=== PATIENT | female | born 1950 | race Caucasian/White ===

== ENCOUNTER 2019-07-27 11:33 | Emergency (ER) | payer OTHER ==
[2019-07-27 12:18] VITALS: BMI 33.3
--- NOTE | 2019-07-27 12:25 | PDOC ---
History of Present Illness - General Chief Complaint: Injury Stated Complaint: HEAD INJURY Time Seen by Provider: 07/27/19 12:22 - History of Present Illness Initial Comments: 07/27/19 12:41 Ms. Maldonado is a 68 year old woman with a pmhx of polycythemia vera and 3 strokes (last in 1997, only deficit is the pt is non-verbal but able to answer yes no and follow commands, neuro exam is otherwise normal) who presents to the emergency department from [facility] s/p unwitnessed fall. Per the family, the patient was in her room at [facility] and they believe her door was not closed all the way, she was walking towards it and tripped over her feet, hitting the L side of her face into the door frame. There is conflicting reports about whether the pt actually fell too the ground or not, however the pt denies falling to the ground. Stating "No" when asked if she fell on her hands, hip, knees, or buttocks. She also denied hitting any other part of her body aside from the L side of her face. Past History - Travel Traveled outside of the country in the last 30 days: No Close contact w/someone who was outside of country & ill: No - Past Medical History Allergies/Adverse Reactions: Allergies Allergy/AdvReac Type Severity Reaction Status Date / Time Penicillins Allergy Verified 07/27/19 12:03 Home Medications: Ambulatory Orders Aspirin/Dipyridamole [Aggrenox -] 1 combo PO BID 01/22/15 Calcium Carb/Magnesium Hydrox [Antacid Chewable Tablet] 1 each PO BID 01/22/15 Cholecalciferol (Vitamin D3) [Vitamin D-3] 2,000 unit PO DAILY 01/22/15 Levothyroxine [Synthroid -] 37.5 mcg PO DAILY 07/27/19 CVA: Yes COPD: No HTN: Yes - Immunization History Immunization Up to Date: Yes - Psycho Social/Smoking Cessation Hx Smoking History: Unknown if ever smoked Have you smoked in the past 12 months: No Information on smoking cessation initiated: No Hx Alcohol Use: No Drug/Substance Use Hx: No Substance Use Type: None Hx Substance Use Treatment: No Review of Systems - Review of Systems Able to Perform ROS?: Yes Is the patient limited Andorran proficient: No Constitutional: No: Chills, Fever, Loss of Appetite HEENTM: Yes: Eye Pain Respiratory: No: Shortness of Breath Cardiac (ROS): No: Chest Pain, Irregular Heart Rate, Lightheadedness, Palpitations, Syncope ABD/GI: No: Abdominal Distended, Blood Streaked Bowels, Rectal Bleeding : No: Burning, Dysuria, Flank Pain, Hematuria Integumentary: No: Change in Color, Dryness, Erythema, Rash Neurological: No: Headache, Numbness, Paresthesia, Tingling All Other Systems: Reviewed and Negative *Physical Exam - Vital Signs Last Vital Signs Temp Pulse Resp BP Pulse Ox 97.9 F 91 H 17 148/83 97 07/27/19 12:00 07/27/19 12:00 07/27/19 12:00 07/27/19 12:00 07/27/19 12:00 - Physical Exam General Appearance: Yes: Nourished, Appropriately Dressed HEENT: positive: EOMI, KALEE, Pharynx Normal, Other (bruising and swelling noted around the L eye, worse in the infraorbital region. EOM intact bilaterally and visual danielle are full bilaterally, no conjunctival injection, no evidence of intraocular trauma. ) Neck: positive: Trachea midline, Supple. negative: Tender, Lymphadenopathy (R) , Lymphadenopathy (L) Respiratory/Chest: positive: Lungs Clear, Normal Breath Sounds. negative: Chest Tender, Respiratory Distress, Accessory Muscle Use Cardiovascular: positive: Regular Rhythm, Regular Rate, S1, S2. negative: JVD, Murmur Gastrointestinal/Abdominal: positive: Normal Bowel Sounds, Flat, Soft. negative : Tender, Organomegaly, Tenderness Musculoskeletal: positive: Normal Inspection. 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 Maldonado is a 68 year old woman with a pmhx of polycythemia vera and 3 strokes (last in 1997, only deficit is the pt is non-verbal but able to answer yes no and follow commands, neuro exam is otherwise normal) who presents to the emergency department from [facility] s/p unwitnessed fall. Given the pt is on dual antiplatelet therapy for her polycythemia vera, we must r/o intracranial bleed with a head CT, this will also allow us to r/o any orbital fx. Pt denies severe pain at this time, does not request any pain medicine. CT head and c-spine w/o contrast. Will likely be able to be d/c'd back to [facility] pending CT results 07/27/19 16:57 CT scan of head, facial bones, and cervical spine without any evidence of fracture. No evidence if intracranial hemorrhage or acute pathology. Patient is stable for discharge back to [facility]. Discharge - Discharge Information Problems reviewed: Yes Clinical Impression/Diagnosis: Head trauma - Admission No - Follow up/Referral - Patient Discharge Instructions Patient Printed Discharge Instructions: How to Prevent Falls Additional Instructions: You were in the hospital because you tripped and fell, hitting your face on the door of your room. We did basic labs and took CT scans of your head and neck. Your lab work and physical exam were unremarkable except for the large amount of swelling and bruising around your eye. CT scan did not show any evidence of bleeding inside your head or fractures of your bones. There was no evidence of trauma to your eye itself, only the surrounding area. You likely have a larger amount of bruising than expected because of the blood thinners you take. This will resolve in time. Please return to the emergency department with any new or worsening symptoms or concerns. Please follow up with your primary care physician within 72 hours. - Post Discharge Activity
--- NOTE | 2019-07-27 15:17 | PDOC ---
Documentation entered by Mauricio Sexton SCRIBE, acting as scribe for Dennise Masters MD. Dennise Masters MD: This documentation has been prepared by the Darshan brannon Xhesika, SCRIBE, under my direction and personally reviewed by me in its entirety. I confirm that the documentation accurately reflects all work, treatment, procedures, and medical decision making performed by me. Attending Attestation - Resident Resident Name: Krissy Blackburn - HPI HPI: 07/27/19 14:00 The patient is a 68 year old female with a significant PMH of polycythemia vera and 3 strokes (last in 1997, only non-verbal but able to answer yes or no questions) who presents to the emergency department [facility] for L eye swelling and ecchymosis s/p unwitnessed fall 2hrs [employer]. Reports of how the patient fell are unknown, however, family at bedside think the patient might have been walking to close her door, tripped and hit the L side of her face onto the door frame. Family notes the patient has a history of unsteady gait, however, patient ambulates on her own without a cane/walker. As per family, patient is at her baseline, grunting and nodding her head when asked questions. The patient denies chest pain, shortness of breath, headache and dizziness. Denies fever, chills, cough, nausea, vomiting, diarrhea and constipation. Allergies: penicillin - Physicial Exam PE: 07/27/19 14:23 GENERAL: Awake, alert, and oriented, in no acute distress HEAD: No signs of trauma EYES: + periorbital - R infraorbital ecchymosis. KALEE, EOM, sclera anicteric, conjunctiva clear LUNGS: Breath sounds equal, clear to auscultation bilaterally. No wheezes, and no crackles HEART: Regular rate and rhythm, normal S1 and S2, no murmurs, rubs or gallops ABDOMEN: Soft, nontender, normoactive bowel sounds. No guarding, no rebound. No masses EXTREMITIES: Normal range of motion, no edema. No clubbing or cyanosis. No cords, erythema, or tenderness NEUROLOGICAL: alert and responds to questions by nodding and grunting. Pt at baseline per family. SKIN: Warm, Dry, normal turgor, no rashes or lesions noted. - Medical Decision Making 07/27/19 15:07 Pt presents to the ED complaining of ecchymosis to the L eye after fall. Fall seems consistent with a mechanical fall, but patient is unable to give history and fall was unwitnessed. Currently denies complaints. CT head and C spine checked to rule out intracranial or cervical spinal injury and are negative. Will check basic labs, cardiac enzymes and EKG to evaluate for causes of possible syncope. 07/27/19 15:11 07/27/19 15:13
[2019-07-27 15:26] LABS: BASO % 0.7 % (0-2.0); EOS % 0.3 % (0-4.5); HEMATOCRIT 40.6 % (32.4-45.2); HEMOGLOBIN 13.6 GM/dL (10.7-15.3); LYMPH % 17.9 % (8-40); MCH 30.1 pg (25.7-33.7); MCHC 33.4 g/dl (32.0-36.0); MEAN PLT VOLUME 6.9 fl (7.5-11.1); MONO % 5.5 % (3.8-10.2); NEUT % 75.6 % (42.8-82.8); PLATELET COUNT 286 K/MM3 (134-434); RBC 4.51 M/mm3 (3.60-5.2); RDW 13.1 % (11.6-15.6); WHITE BLOOD COUNT 10.4 K/mm3 (4.0-10.0)
[2019-07-27 16:02] LABS: ALBUMIN 3.9 g/dl (3.4-5.0); ALK PHOS 102 U/L (45-117); ANION GAP 7 MMOL/L (8-16); BILIRUBIN,TOTAL 0.2 mg/dL (0.2-1); BLOOD UREA NITROGEN 18.5 mg/dL (7-18); CALCIUM 9.1 mg/dL (8.5-10.1); CHLORIDE 108 mmol/L (98-107); CO2 26 mmol/L (21-32); CREATININE 0.8 mg/dL (0.55-1.3); GLUCOSE,RANDOM 93 mg/dL (74-106); SGOT/AST 21 U/L (15-37); SGPT/ALT 28 U/L (13-61); SODIUM 141 mmol/L (136-145); TOT PROT 7.6 g/dl (6.4-8.2)
[2019-07-27 16:40] VITALS: BP 143/83; PULSE 84; TEMP 98.5
--- NOTE | 2019-07-30 11:40 | EKG ---
Test Reason : Blood Pressure : / mmHG Vent. Rate : 081 BPM Atrial Rate : 081 BPM P-R Int : 158 ms QRS Dur : 076 ms QT Int : 394 ms P-R-T Axes : 057 001 036 degrees QTc Int : 457 ms NORMAL SINUS RHYTHM POSSIBLE LEFT ATRIAL ENLARGEMENT LEFT VENTRICULAR HYPERTROPHY CANNOT RULE OUT SEPTAL INFARCT , AGE UNDETERMINED ABNORMAL ECG WHEN COMPARED WITH ECG OF 22-JAN-2015 07:07, NO SIGNIFICANT CHANGE WAS FOUND Confirmed by EMILIANA COBOS, IRLANDA ([id number]) on 07/30/2019 11:40:18 AM Referred By: Confirmed By:IRLANDA HOPSON MD
== END 2019-07-27 17:57 | disposition home or self-care (01) ==
LOC: JER 11:33
DX: S05.12XA Contusion of eyeball and orbital tissues, left eye, initial encounter (principal); W01.198A Fall on same level from slipping, tripping and stumbling with subsequent striking against other object, initial encounter; Y93.89 Activity, other specified; Y92.122 Bedroom in nursing home as the place of occurrence of the external cause; Y99.8 Other external cause status; D45 Polycythemia vera; I10 Essential (primary) hypertension; I69.820 Aphasia following other cerebrovascular disease; Z88.0 Allergy status to penicillin
CPT/HCPCS: 36415; 70450-TC; 70486-TC; 72125-TC; 80053; 82550; 82553; 84484; 85025; 93005; 93010; 99284-25